=== PATIENT | female | born 1950 | race Caucasian/White ===

== ENCOUNTER 2018-04-03 20:11 | Emergency (ER) | payer MEDICARE, OTHER ==
[~2018-04-03] VITALS: Ht 165.1 cm; Wt 111.6 kg
[2018-04-03] MEDS ORDERED: CITA20 PO (20:46)
[2018-04-03] MEDS ORDERED: BUME1 PO (20:46)
[2018-04-03] MEDS ORDERED: LEVSOD125 PO (20:47)
[2018-04-03] MEDS ORDERED: METO25ER (20:47)
[2018-04-03] MEDS ORDERED: PREG25 PO (20:47)
[2018-04-03] MEDS ORDERED: IRON150C (20:47)
[2018-04-03] MEDS ORDERED: AMLO10 PO (20:48)
[2018-04-03] MEDS ORDERED: XARELTO15 MG PO (20:48)
[2018-04-03] MEDS ORDERED: RANI150 PO (20:48)
[2018-04-03] MEDS ORDERED: ALLO100 (20:48)
== END 2018-04-03 20:51 | disposition home or self-care (01) ==
LOC: ER 20:11
DX: T82.598A Other mechanical complication of other cardiac and vascular devices and implants, initial encounter (principal)
CPT/HCPCS: 99283